=== PATIENT | male | born 1980 | race Caucasian/White ===

== ENCOUNTER 2021-07-08 23:53 | Inpatient (IN) ==
[2021-07-09] MEDS ORDERED: Tdap (Boostrix) Vaccine 0.5 ML SYRINGE IM ONE (00:31)
[2021-07-09] MEDS ORDERED: Vancomycin 1,750 MG/517.5 ML IV.SOLN IVPB ONE ×2 (00:31→00:39)
[2021-07-09] MEDS ORDERED: 0.9 % Sodium Chloride 1,000 ML IV ONE (00:31)
[2021-07-09] MEDS ORDERED: Piperacillin/Tazobactam 3.375 GM in 0.9 % Sodium Chloride Mini Bag 100 ML IVP ONE (00:31)
[2021-07-09] MEDS ORDERED: Acetaminophen 325 MG TABLET PO PRN (00:56)
[2021-07-09] MEDS ORDERED: Ondansetron 4 MG/2 ML VIAL IVP PRN ×2 (00:56→17:13)
[2021-07-09] MEDS ORDERED: Naloxone 0.4 MG/ML INJ IVP PRN (00:56)
[2021-07-09] MEDS ORDERED: Melatonin 3 MG TABLET PO PRN (00:56)
[2021-07-09] MEDS ORDERED: D5% in Water 1,000 ML IVC PRN (00:59)
[2021-07-09] MEDS ORDERED: Dextrose 4 GM Chewable Tablets PO PRN ×2 (00:59)
[2021-07-09] MEDS ORDERED: *HR* Dextrose 50 % in Water (Syg) 50 ML SYRINGE IVP PRN (00:59)
[2021-07-09 01:02] LABS: Basophils % 0.4 %; Eosinophils # 0.3 K/mcL (0.0-0.6); Hematocrit 41.8 % (37.5-50.1); Hemoglobin 13.9 g/dL (12.9-16.9); Immature Granulocytes % 0.3 % (0-4); Lymphocytes # 2.2 K/mcL (0.6-4.6); Lymphocytes % 24.4 %; Mean Corpuscular HGB Conc 33.3 g/dL (31.6-35.5); Mean Corpuscular Hemoglobin 30.2 pg (28.0-33.3); Mean Corpuscular Volume 90.9 fL (83.0-100.0); Monocytes # 0.8 K/mcL (0.0-1.3); Monocytes % 8.6 %; Neutrophils # 5.8 K/mcL (1.6-8.9); Platelet Count 203 K/mcL (140-400); Red Cell Distribution Width 12.4 % (11.5-14.5); Segmented Neutrophils % 63.3 %; White Blood Count 9.1 K/mcL (4.3-11.1)
[2021-07-09 01:08] LABS: Alanine Aminotransferase 29 Units/L (7-52); Albumin 3.8 g/dL (3.5-5.7); Albumin/Globulin Ratio 1.2 (1.1-2.2); Alkaline Phosphatase 59 Units/L (34-104); Aspartate Amino Transferase 20 Units/L (13-39); BUN/Creatinine Ratio 15 (6-26); Bilirubin,Total 0.3 mg/dL (0.3-1.0); Blood Urea Nitrogen 14 mg/dL (6-20); C-Reactive Protein 33 mg/L (Less than 10); Calcium 9.6 mg/dL (8.6-10.3); Carbon Dioxide 27 mEq/L (23-29); Chloride 104 mEq/L (98-107); Globulin 3.2 g/dL (2.4-3.5); Glucose 119 mg/dL (70-105); Osmolality,Calculated 288 (280-300); Potassium 3.8 mEq/L (3.5-5.1); Sodium 138 mEq/L (136-145); eGFR For African Americans > 60 (> 60); eGFR For Non-African Americans > 60 (> 60)
[2021-07-09] MEDS ORDERED: Saliva Stimulant 44.3ml BOTTLE PO PRN (01:09)
[2021-07-09] MEDS: *HR* OxyCODONE Immed Rel 5 MG TABLET PO PRN ×2 (03:04→23:06)
[2021-07-09] MEDS: 0.9 % Sodium Chloride 1,000 ML IVC SCH ×2 (03:59→19:41)
[2021-07-09 05:02] LABS: INR 1.1; Prothrombin Time 12.7 Seconds (9.4-12.1)
[2021-07-09 05:05] LABS: Activated Partial Thrombo Time 30.9 Seconds (26.0-36.0)
[2021-07-09 05:09] LABS: Magnesium 1.7 mg/dL (1.6-2.6)
[2021-07-09] MEDS: *HR* Enoxaparin 40 MG/0.4 ML SYRINGE SQ SCH (05:30)
[2021-07-09] MEDS: Chlorhexidine Rinse 15 ML MOUTHWASH MM SCH ×2 (08:16→20:34)
[2021-07-09] MEDS: Piperacillin/Tazobactam 3.375 GM in 0.9 % Sodium Chloride Mini Bag 100 ML IVPB SCH ×3 (08:16→23:06)
[2021-07-09] MEDS: Lactobacillus 1 EACH CAP.SPRINK PO SCH ×2 (08:17→20:34)
[2021-07-09] MEDS: Nicotine 7 MG PATCH.TD24 TD SCH (08:18)
[2021-07-09] MEDS: *HR* HYDROcodone/Acet 5/325 mg TABLET PO PRN (08:31)
[2021-07-09] MEDS: Vancomycin 1,500 MG/265 ML IV.SOLN IVPB SCH (14:02)
[2021-07-09] MEDS ORDERED: Lidocaine/EPI 1:100k 1% 30 ML VIAL ONE (17:03)
[2021-07-09] MEDS ORDERED: *HR* Midazolam HCl 2 MG/2 ML VIAL ONE (17:06)
[2021-07-09] MEDS ORDERED: Lidocaine -MPF 2% 5 ML VIAL ONE (17:06)
[2021-07-09] MEDS ORDERED: Ondansetron 4 MG/2 ML VIAL ONE (17:06)
[2021-07-09] MEDS ORDERED: *HR* FentaNYL (PF) 100 MCG/2 ML VIAL ONE ×2 (17:06→17:47)
[2021-07-09] MEDS ORDERED: *HR* Propofol 200 MG/20 ML VIAL IVP ONE (17:06)
[2021-07-09] MEDS ORDERED: Ketorolac 30 MG/ML VIAL IVP PRN (17:13)
[2021-07-09] MEDS ORDERED: Promethazine 6.25 MG in Water for inj. (sterile) 20 ML IVPB PRN (17:13)
[2021-07-09] MEDS ORDERED: *HR* OxyCODONE/APAP 5/325 TABLET PO PRN (17:13)
[2021-07-09] MEDS ORDERED: *HR* Labetalol 20 MG/4 ML SYRINGE IVP PRN (17:13)
[2021-07-09] MEDS ORDERED: Ketamine HCL *QUVA* 50mg (1mL) SYRINGE ONE (17:46)
[2021-07-09] MEDS ORDERED: Ringers Solution, Lactated 500 ML IVC ONE (18:15)
[2021-07-09] MEDS: *HR* HYDROmorphone PF 0.5 MG/0.5 ML SYRINGE IVP PRN ×2 (18:40→18:49)
[2021-07-10] MEDS: Vancomycin 1,500 MG/265 ML IV.SOLN IVPB SCH ×2 (02:16→12:11)
[2021-07-10] MEDS: *HR* OxyCODONE Immed Rel 5 MG TABLET PO PRN ×2 (05:43→20:13)
[2021-07-10] MEDS: *HR* Enoxaparin 40 MG/0.4 ML SYRINGE SQ SCH (05:44)
[2021-07-10 06:37] LABS: Basophils % 0.2 %; Eosinophils % 0.1 %; Hematocrit 38.9 % (37.5-50.1); Hemoglobin 12.7 g/dL (12.9-16.9); Immature Granulocytes % 0.4 % (0-4); Lymphocytes # 1.3 K/mcL (0.6-4.6); Lymphocytes % 12.9 %; Mean Corpuscular HGB Conc 32.6 g/dL (31.6-35.5); Mean Corpuscular Hemoglobin 29.7 pg (28.0-33.3); Mean Corpuscular Volume 91.1 fL (83.0-100.0); Mean Platelet Volume 10.1 fL (9.4-12.4); Monocytes # 0.8 K/mcL (0.0-1.3); Monocytes % 7.5 %; Neutrophils # 7.9 K/mcL (1.6-8.9); Platelet Count 218 K/mcL (140-400); Red Blood Count 4.27 M/mcL (4.19-5.50); Red Cell Distribution Width 12.2 % (11.5-14.5); Segmented Neutrophils % 78.9 %
[2021-07-10 06:53] LABS: BUN/Creatinine Ratio 18 (6-26); Blood Urea Nitrogen 14 mg/dL (6-20); Calcium 8.7 mg/dL (8.6-10.3); Carbon Dioxide 27 mEq/L (23-29); Chloride 103 mEq/L (98-107); Glucose 129 mg/dL (70-105); Magnesium 1.9 mg/dL (1.6-2.6); Osmolality,Calculated 282 (280-300); Phosphorous 3.3 mg/dL (2.7-4.5); Potassium 4.3 mEq/L (3.5-5.1); Sodium 135 mEq/L (136-145); eGFR For African Americans > 60 (> 60); eGFR For Non-African Americans > 60 (> 60)
[2021-07-10] MEDS ORDERED: Vancomycin 1,750 MG/517.5 ML IV.SOLN IVPB SCH (08:00)
[2021-07-10] MEDS ORDERED: Ketorolac 30 MG/ML VIAL IM PRN (08:47)
[2021-07-10] MEDS: Nicotine 7 MG PATCH.TD24 TD SCH (09:51)
[2021-07-10] MEDS: Lactobacillus 1 EACH CAP.SPRINK PO SCH ×2 (09:51→20:13)
[2021-07-10] MEDS: Piperacillin/Tazobactam 3.375 GM in 0.9 % Sodium Chloride Mini Bag 100 ML IVPB SCH ×3 (09:51→23:37)
[2021-07-10] MEDS: Chlorhexidine Rinse 15 ML MOUTHWASH MM SCH (09:51)
[2021-07-10] MEDS: *HR* HYDROcodone/Acet 5/325 mg TABLET PO PRN (12:12)
[2021-07-10 19:08] VITALS: BP 136/78; PULSE 105; TEMP 97.6; O2SAT 99
[2021-07-11] MEDS ORDERED: Vancomycin 1,750 MG/517.5 ML IV.SOLN IVPB SCH
[2021-07-11] MEDS: *HR* OxyCODONE Immed Rel 5 MG TABLET PO PRN (02:59)
[2021-07-11 04:52] LABS: BUN/Creatinine Ratio 19 (6-26); Blood Urea Nitrogen 15 mg/dL (6-20); Calcium 8.3 mg/dL (8.6-10.3); Carbon Dioxide 25 mEq/L (23-29); Chloride 107 mEq/L (98-107); Glucose 112 mg/dL (70-105); Magnesium 1.9 mg/dL (1.6-2.6); Osmolality,Calculated 286 (280-300); Phosphorous 3.3 mg/dL (2.7-4.5); Potassium 3.7 mEq/L (3.5-5.1); Sodium 137 mEq/L (136-145); eGFR For African Americans > 60 (> 60); eGFR For Non-African Americans > 60 (> 60)
[2021-07-11] MEDS: *HR* Enoxaparin 40 MG/0.4 ML SYRINGE SQ SCH (06:46)
[2021-07-11] MEDS: Piperacillin/Tazobactam 3.375 GM in 0.9 % Sodium Chloride Mini Bag 100 ML IVPB SCH (08:14)
[2021-07-11] MEDS: Lactobacillus 1 EACH CAP.SPRINK PO SCH (08:15)
[2021-07-11] MEDS: Nicotine 7 MG PATCH.TD24 TD SCH (08:15)
[2021-07-11] MEDS: *HR* HYDROcodone/Acet 5/325 mg TABLET PO PRN (08:22)
== END 2021-07-11 14:25 | disposition home or self-care (01) | DRG 364 ==
LOC: EMEROOARM 23:53 → 4WAOSI 23:53 → SUATTDRO 07-09 01:00 → 4WAOSI 07-09 02:30
PROVIDERS: ADMIT Internal Medicine; ATTEND Internal Medicine